=== PATIENT | female | born 1985 | race Two or more races ===

== ENCOUNTER 2025-01-02 13:57 | Emergency (ER) | payer MEDICAID ==
[~2025-01-02] VITALS: Ht 160 cm; Wt 61.2 kg
[2025-01-02 14:32] VITALS: TEMP 98.2
[2025-01-02 15:39] LABS: PLATELET COUNT (AUTO) 209 K/uL (150-450); RED BLOOD CELL COUNT(AUTO) 4.92 MIL/uL (4.0-5.2); RED CELL DISTRIBUTION WIDTH 13.7 % (11.5-15.0); WHITE BLOOD COUNT (AUTO) 6.0 K/uL (4.3-11.0)
[2025-01-02 15:46] LABS: CALCIUM, SERUM 8.8 mg/dL (8.5-10.1); CREATININE 1.1 mg/dL (0.6-1.3); SODIUM SERUM 140 mmol/L (136-145); UREA NITROGEN, BLOOD 8 mg/dL (7-18)
[2025-01-02] MEDS ORDERED: AMOX500T2 PO (16:17)
[2025-01-02] MEDS ORDERED: AZIT250T PO (16:17)
[2025-01-02] MEDS ORDERED: ACETAMINOPHEN ES 500 MG TABLET ONE (16:26)
[2025-01-02] MEDS ORDERED: IBUPROFEN 600 MG TABLET ONE (16:26)
[2025-01-02] MEDS: IBUPROFEN 600 MG TABLET PO ONE (16:33)
[2025-01-02] MEDS: ACETAMINOPHEN ES 500 MG TABLET PO ONE (16:33)
[2025-01-02 16:34] VITALS: BP 126/80; O2SAT 98
== END 2025-01-02 17:06 | disposition home or self-care (01) ==
LOC: ER 14:20
DX: J18.9 Pneumonia, unspecified organism (principal)
CPT/HCPCS: 36415; 71045-TC; 80048-TC; 84484-TC; 85025-TC